=== PATIENT | female | born 1985 | race African-American/Black ===

== ENCOUNTER 2020-01-26 06:47 | Inpatient (IN) | payer SELFPAY ==
[~2020-01-26] VITALS: Ht 162.6 cm; Wt 80.3 kg
[2020-01-26] MEDS ORDERED: LACTATED RINGERS 1,000 ML IV SCH (07:40)
[2020-01-26 08:13] LABS: BASOPHILS % 0.3 % (0.0-2.0); EOSINOPHILS % 1.1 % (0.0-5.0); HEMATOCRIT. 35.1 % (36.0-48.0); HEMOGLOBIN. 12.2 g/dL (12.0-16.0); LYMPHOCYTES % 28.6 % (20.0-50.0); MEAN CORPUSCULAR HEMOGLOBIN 31.1 pg (28.0-32.0); MEAN CORPUSCULAR VOLUME 89.4 fL (81.0-99.0); MEAN PLATELET VOLUME 7.8 fl (7.4-10.4); PLATELET 255 x1000/uL (130-400); RED BLOOD CELL COUNT 3.92 mill/uL (4.2-5.4); RED CELL DISTRIBUTION WIDTH 16.2 % (11.6-14.6)
[2020-01-26 08:15] LABS: CLARITY URINE CLOUDY (CLEAR); COLOR URINE YELLOW (YELLOW); KETONES URINE NEGATIVE (NEGATIVE); LEUKOCYTE ESTERASE URINE 2+ (NEGATIVE); NITRITE URINE NEGATIVE (NEGATIVE); OCCULT BLOOD URINE TRACE (NEGATIVE); PH URINE 5.5 (4.5-8.0); PROTEIN URINE NEGATIVE (NEGATIVE); SPECIFIC GRAVITY URINE 1.014 (1.005-1.030); UROBILINOGEN URINE 0.2 E.U./dL (0.2-1.0)
[2020-01-26 08:23] LABS: INR 0.9; PARTIAL THROMBOPLASTIN TIME 28.2 sec (23.4-31.0); PROTHROMBIN TIME 9.7 sec (9.6-11.0)
[2020-01-26 08:31] LABS: *AMPHETAMINES SCREEN URINE NEGATIVE (NEGATIVE)
[2020-01-26 08:32] LABS: *BARBITURATES SCREEN URINE NEGATIVE (NEGATIVE); *BENZODIAZEPINES SCREEN URINE NEGATIVE (NEGATIVE); *COCAINE SCREEN URINE NEGATIVE (NEGATIVE); METHADONE URINE SCREEN NEGATIVE (NEGATIVE); OPIATES URINE SCREEN NEGATIVE (NEGATIVE); PHENCYCLIDINE URINE SCREEN NEGATIVE (NEGATIVE)
[2020-01-26 08:33] LABS: CANNABINOID URINE SCREEN NEGATIVE (NEGATIVE)
[2020-01-26] MEDS ORDERED: FENTANYL CITRATE/PF 50MCG/ML 2ML VIAL ONE (08:48)
[2020-01-26] MEDS ORDERED: MORPHINE SULFATE/PF 1MG/ML 10ML AMP ONE (08:48)
[2020-01-26 09:18] LABS: HEPATITIS B SURFACE ANTIGEN NEGATIVE
[2020-01-26] MEDS ORDERED: CEFAZOLIN SODIUM 1000MG/VIAL ONE (09:29)
[2020-01-26] MEDS ORDERED: SODIUM CHLORIDE 0.9% 10ML VIAL ONE (09:29)
[2020-01-26] MEDS ORDERED: PHENYLEPHRINE HCL 10 MG/ML 1ML (IV VIAL) IV ONE (09:30)
[2020-01-26] MEDS ORDERED: OXYTOCIN 10 UNITS/ML 1ML ONE (09:30)
[2020-01-26] MEDS ORDERED: EPHEDRINE SULFATE 50MG/ML VIAL ONE (09:30)
[2020-01-26] MEDS ORDERED: ONDANSETRON HCL 4MG/2ML INJ IV PRN (09:45)
[2020-01-26] MEDS ORDERED: LABETALOL 5MG/ML SYR 20 MG/4 ML SYRINGE IV PRN (09:45)
[2020-01-26] MEDS ORDERED: MEPERIDINE HCL/PF 25MG/ML CPJ IV PRN (09:45)
[2020-01-26] MEDS ORDERED: HYDROMORPHONE HCL/PF 2MG/ML CPJ IV PRN (09:45)
[2020-01-26] MEDS ORDERED: DEXT 5%/LR + PITOCIN 20UNITS/L 1,000 ML IV SCH (09:58)
[2020-01-26] MEDS ORDERED: IBUPROFEN 400MG TABLET PO PRN (10:00)
[2020-01-26] MEDS ORDERED: RHO(D) IMMUNE GLOBULIN 300 MCG/SYR IM PRN (10:00)
[2020-01-26] MEDS ORDERED: BISACODYL 10MG SUPP PR PRN (10:00)
[2020-01-26] MEDS: KETOROLAC 30MG/ML VIAL IV PRN ×2 (11:00→21:49)
[2020-01-26 12:45] VITALS: BP 98/50
[2020-01-26 13:15] VITALS: BP 93/54
[2020-01-26 16:20] VITALS: BP 91/51
[2020-01-26 19:05] VITALS: BP 97/50
[2020-01-26 23:30] VITALS: BP 98/52
[2020-01-27 04:10] VITALS: BP 97/54
[2020-01-27] MEDS: KETOROLAC 30MG/ML VIAL IV PRN (06:07)
[2020-01-27 07:22] LABS: BASOPHILS % 0.3 % (0.0-2.0); EOSINOPHILS % 0.5 % (0.0-5.0); HEMATOCRIT. 27.5 % (36.0-48.0); HEMOGLOBIN. 9.5 g/dL (12.0-16.0); LYMPHOCYTES % 17.9 % (20.0-50.0); MEAN CORPUSCULAR HEMOGLOBIN 31.1 pg (28.0-32.0); MEAN CORPUSCULAR VOLUME 89.9 fL (81.0-99.0); MEAN PLATELET VOLUME 7.5 fl (7.4-10.4); MONOCYTES % 5.9 % (2.0-8.0); NEUTROPHILS % 75.4 % (40.0-76.0); PLATELET 181 x1000/uL (130-400); RED BLOOD CELL COUNT 3.06 mill/uL (4.2-5.4); RED CELL DISTRIBUTION WIDTH 16.1 % (11.6-14.6)
[2020-01-27 07:40] VITALS: BP 92/51
[2020-01-27] MEDS: IBUPROFEN 800MG TABLET PO PRN ×3 (09:02→21:48)
[2020-01-27 16:07] VITALS: BP 106/67
[2020-01-27 19:30] VITALS: BP 99/49
[2020-01-28 04:00] VITALS: BP 96/53
[2020-01-28] MEDS: IBUPROFEN 800MG TABLET PO PRN (06:20)
[2020-01-28 07:30] VITALS: BP 104/57
== END 2020-01-28 12:45 | disposition home or self-care (01) | DRG 540 ==
LOC: OBSVTOIN 06:47 → 8 EST LDRP 06:47 → 8EST 13:26
PROVIDERS: ADMIT Obstetrics & Gynecology; ATTEND Obstetrics & Gynecology
PROC: 10D00Z1 Extraction of Products of Conception, Low, Open Approach (ICD-10-PCS; principal; 2020-01-26)
DX: O34.211 Maternal care for low transverse scar from previous cesarean delivery (principal); D64.9 Anemia, unspecified; O90.81 Anemia of the puerperium; Z37.0 Single live birth; O69.81X0 Labor and delivery complicated by cord around neck, without compression, not applicable or unspecified; Z83.3 Family history of diabetes mellitus; Z83.2 Family history of diseases of the blood and blood-forming organs and certain disorders involving the immune mechanism; Z3A.39 39 weeks gestation of pregnancy
CPT/HCPCS: 36415; 80305; 81003; 85025; 86592; 86703; 86762; 86850; 86900; 87340; 88307; G0378; J0690; J1885; J2274; J2370; J2590; J3010; J3490; J7120